=== PATIENT | female | born 1985 ===

== ENCOUNTER 2020-11-22 11:07 | Emergency (ER) | payer OTHER, SELFPAY ==
[2020-11-22 11:12] VITALS: BP 118/70; PULSE 61; RESP 18; TEMP 36.8; O2SAT 99; BMI 24.3
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
[2020-11-22 13:17] VITALS: BP 108/65; PULSE 52; RESP 16; O2SAT 100
== END 2020-11-22 13:17 | disposition home or self-care (01) ==
PROVIDERS: Emergency Provider Emergency Medicine
DX: M25.511 Pain in right shoulder (principal); V89.2XXA Person injured in unspecified motor-vehicle accident, traffic, initial encounter
CPT/HCPCS: 99281